=== PATIENT | female | born 1950 | race Caucasian/White ===

== ENCOUNTER 2023-05-02 09:29 | Outpatient (CLI) | payer MEDICARE, SELFPAY ==
--- NOTE | ~2023-05-02 | CT_ITS ---
Non-contrast CT scan of the Abdomen and Pelvis Clinical indication: Left flank pain Technique: 2.5 mm axial scans were obtained through the abdomen and pelvis without intravenous or or al contrast. Dose reduction technique was used on this scan by utilizing automated exposure control a nd iterative reconstruction technique. The dose-length product (DLP) was 315.57 mGy-cm. Findings: Images through the lung bases reveal a large hiatal hernia containing most of the stomach as well as most of the transverse colon in the pancreatic tail. There is no evidence of renal or ureteral calculi. The kidneys and the ureters are nondilated. Probab le parapelvic renal cysts. The liver, spleen, pancreas, and adrenals appear normal. Calcified gallstones are present. There is n o aortic aneurysm. There is no evidence of bowel obstruction. Images through the pelvis were performed. There is no evidence of ascites or lymphadenopathy. Urinary bladder unremarkable. No pelvic mass seen. No ascites. There is 53 degrees levoscoliosis of lumbar s pine with extensive degenerative change. Moderate to severe degenerative change of both hip joints no jocy Impression: Large hiatal hernia containing nearly entire stomach, most of the transverse colon, and the pancreati c tail. No bowel obstruction or bowel wall thickening evident. Cholelithiasis. Parapelvic renal cysts. No renal or ureteral stone. No hydronephrosis. Prominent levoscoliosis of lumbar spine with degenerative change, as detailed above. Reviewed, dictated and finalized at [facility] [place]. Impression: Large hiatal hernia containing nearly entire stomach, most of the transverse co az, and the pancreatic tail. No bowel obstruction or bowel wall thickening alicia dent. Cholelithiasis. Parapelvic renal cysts. No renal or ureteral stone. No hydronephrosis. Prominent levoscoliosis of lumbar spine with degenerative change, as detailed a aiden.
== END 2023-05-02 09:30 ==
PROVIDERS: PCP Internal Medicine; Visit Provider Internal Medicine
DX: R10.9 Unspecified abdominal pain (principal); K44.9 Diaphragmatic hernia without obstruction or gangrene; K80.20 Calculus of gallbladder without cholecystitis without obstruction; N28.1 Cyst of kidney, acquired
CPT/HCPCS: 74176

== ENCOUNTER 2023-08-09 01:24 | Day surgery (SDC) | payer MEDICARE, SELFPAY ==
[2023-07-28 10:14] VITALS: BMI 20.9
[2023-08-09 10:08] VITALS: BP 152/98; PULSE 104; RESP 18; TEMP 36.2; O2SAT 98; BMI 22.1
[2023-08-09] MEDS: LACTATED RINGERS 1,000 ML 150 ML IV CONT (10:20)
--- NOTE | 2023-08-09 10:27 | WPDANESEPPF ---
Anes - Initial Pre Proc Eval Procedure: Operation Date: 08/09/23 11:30 Proposed Procedures p Esophagogastroduodenoscopy - Gautam Gold MD Date/Time: 08/09/23 10:27 Surgeon: Gautam Gold MD Pre Op Diagnosis: GERD without esophagitis,Diaphragmatic hernia Patient Data Age: 72 Gender: F Height: 1.52 m Weight: 51.6 kg Last Vital Signs Temp 97.2 F L 08/09/23 10:08 Pulse 104 H 08/09/23 10:08 Resp 18 08/09/23 10:08 BP 152/98 H 08/09/23 10:08 Pulse Ox 98 08/09/23 10:08 O2 Del Method Room Air 08/09/23 10:08 Allergies Allergy/AdvReac Type Severity Reaction Status Date / Time Sulfa (Sulfonamide Allergy Mild Rash Verified 08/09/23 10:07 Antibiotics) iodine Allergy Rash Verified 08/09/23 10:07 Home Medications Medication Instructions Recorded Confirmed Type alendronate 70 mg tablet 70 mg PO WEEKLY 07/21/23 08/09/23 History amlodipine 5 mg tablet 5 mg PO DAILY 07/21/23 08/09/23 History ascorbic acid (vitamin C) 250 mg 250 mg PO DAILY 07/21/23 08/09/23 History tablet aspirin 81 mg tablet,delayed 81 mg PO DAILY 07/21/23 08/09/23 History release (Adult Low Dose Aspirin) atorvastatin 10 mg tablet 10 mg PO DAILY 07/21/23 08/09/23 History calcium carbonate 200 mg calcium 200 mg PO PRN PRN Indigestion 07/21/23 08/09/23 History (500 mg) chewable tablet (Tums) carvedilol 25 mg tablet 25 mg PO Q12H 07/21/23 08/09/23 History magnesium oxide 400 mg PO DAILY 07/21/23 08/09/23 History mecobalamin (vitamin B12) 10,000 10,000 mcg IM MONTHLY 07/21/23 08/09/23 History mcg solution for injection melatonin 1 mg tablet 1 mg PO QHS 07/21/23 08/09/23 History omeprazole 20 mg capsule,delayed 20 mg PO DAILY 07/21/23 08/09/23 History release tramadol 50 mg tablet 50 mg PO TID PRN Pain 07/21/23 08/09/23 History valsartan 160 mg tablet 160 mg PO BID 07/21/23 08/09/23 History Patient hx anesthesia problems: none Family hx anesthesia problems: none Results Review: All pre-operative results and documents have been reviewed as part of the pre-operative evaluation. FORMERLY [facility] Past Medical History Medical History (Updated 07/21/23 @ 11:35 by Genoveva Duvall, EMERGENCY CARE TECH-C) Anemia Cardiomyopathy Cholelithiasis GERD (gastroesophageal reflux disease) Hiatal hernia HTN (hypertension) Hypercholesterolemia Sleep apnea Vitamin B 12 deficiency Social History Social History Smoking status: Never smoker Alcohol intake: former Substance use type: does not use Living arrangements: other Additional living arrangements comments: with benita Vasquez Final PreProcedure Day of Procedure 08/09/23 10:27 Patient weight: thin Heart: regular rate and rhythm Lungs: clear to auscultation Airway: Mallampati scale class III Neurological: alert and oriented Last oral intake: >/= 8 hours ASA classification: III Emergent: no Anesthetic plan: proceed Anesthesia type and monitoring: general GIVS and standard monitoring Results Review: All pre-operative results and documents have been reviewed as part of the pre-operative evaluation. Informed Consent: The patient's anesthetic plan and its attendant risks and benefits were discussed with the patient/family/POA. Questions were solicited and answers provided to the satisfaction of the patient/family/POA.
--- NOTE | 2023-08-09 10:47 | WPDHPUPDATE1 ---
History and Physical Update Update Date/Time: 08/09/23 10:47 History and Physical has been reviewed, including an updated exam of the patient. There are NO changes in the patient's condition. Risks, benefits, and alternatives have been discussed and questions answered. Patient agrees to proceed with procedure.
[2023-08-09 10:59] VITALS: BP 131/70; PULSE 65; RESP 26; O2SAT 97
[2023-08-09 11:09] VITALS: BP 141/76; PULSE 59; RESP 24; O2SAT 96
[2023-08-09 11:19] VITALS: BP 179/82; PULSE 59; RESP 18; O2SAT 98
--- NOTE | 2023-08-09 11:25 | SUR.PHASEII ---
Dr. Peralta aware of pt elevated bp. Informed pt to take bp med when she gets home.
== END 2023-08-09 11:43 | disposition home or self-care (01) ==
PROVIDERS: PCP Internal Medicine; Visit Provider Internal Medicine Gastroenterology
PROC: 0DJ08ZZ Inspection of Upper Intestinal Tract, Via Natural or Artificial Opening Endoscopic (ICD-10-PCS; CPT 43235; principal; 2023-08-09 11:30)
DX: K21.00 Gastro-esophageal reflux disease with esophagitis, without bleeding (principal); K44.9 Diaphragmatic hernia without obstruction or gangrene; K80.20 Calculus of gallbladder without cholecystitis without obstruction; R93.3 Abnormal findings on diagnostic imaging of other parts of digestive tract; D64.9 Anemia, unspecified; I10 Essential (primary) hypertension; E78.00 Pure hypercholesterolemia, unspecified; E53.8 Deficiency of other specified B group vitamins; G47.30 Sleep apnea, unspecified; Z79.82 Long term (current) use of aspirin; Z79.891 Long term (current) use of opiate analgesic
CPT/HCPCS: 43239; 88305; J2704; J7120

== ENCOUNTER 2023-08-10 08:47 | Outpatient (CLI) | payer MEDICARE, SELFPAY ==
--- NOTE | ~2023-08-10 | XR_ITS ---
EXAMINATION: XR UGIAC w barium swallow DATE: 08/10/2023 09:39 INDICATION: Diaphragmatic hernia without obstruction. TECHNIQUE: The patient drank thick barium, gas-producing crystals, and thin barium. Fluoroscopy of th e esophagus, stomach, and proximal small bowel was performed. Fluoroscopy exposure time was 0.9 minut es. The total number of images was 250. COMPARISON: CT abdomen and pelvis 05/02/2023 FINDINGS: There is no mass or stricture of the esophagus. Esophageal motility is normal. There is a l arge sliding hiatal hernia. The gastroesophageal junction is 13 cm above the diaphragm. The duodenum is normal. Cholelithiasis is noted. IMPRESSION: 1. Large sliding hiatal hernia. Reviewed, dictated and finalized at location [facility].
== END 2023-08-10 08:48 | disposition home or self-care (01) ==
PROVIDERS: PCP Internal Medicine; Visit Provider Nurse Practitioner Family
DX: K44.9 Diaphragmatic hernia without obstruction or gangrene (principal)
CPT/HCPCS: 74246

== ENCOUNTER 2024-11-20 00:43 | Day surgery (SDC) | payer MEDICARE, SELFPAY ==
[2024-11-02 15:03] VITALS: BMI 21.9
--- NOTE | 2024-11-19 15:15 | P.PNAN_ITS ---
Anes - Initial Pre Proc Eval Procedure: Operation Date: 11/20/24 11:30 Proposed Procedures p Esophagogastroduodenoscopy - Gautam Gold MD Date/Time: 11/19/24 15:15 Surgeon: Gautam Gold MD Pre Op Diagnosis: GERD with esophagitis Patient Data Age: 74 Gender: F Height: 1.52 m Weight: 51 kg Allergies Allergy/AdvReac Type Severity Reaction Status Date / Time Sulfa (Sulfonamide Allergy Mild Rash Verified 11/20/24 10:09 Antibiotics) iodine Allergy Rash Verified 11/20/24 10:09 Home Medications ?Medication ?Instructions ?Recorded ?Confirmed ?Type alendronate 70 mg tablet 70 mg PO WEEKLY 07/21/23 11/20/24 History amlodipine 5 mg tablet 5 mg PO DAILY 07/21/23 11/20/24 History ascorbic acid (vitamin C) 250 mg 250 mg PO DAILY 07/21/23 08/09/23 History tablet aspirin 81 mg tablet,delayed 81 mg PO DAILY 07/21/23 11/20/24 History release (Adult Low Dose Aspirin) atorvastatin 10 mg tablet 10 mg PO DAILY 07/21/23 11/20/24 History calcium carbonate (Tums) 200 mg PO PRN PRN Indigestion 07/21/23 11/02/24 History carvedilol 25 mg tablet 25 mg PO Q12H Taking a different 07/21/23 08/09/23 History dose magnesium oxide 400 mg PO DAILY 07/21/23 11/20/24 History mecobalamin (vitamin B12) 10,000 10,000 mcg IM MONTHLY 07/21/23 11/02/24 History mcg solution for injection melatonin 1 mg tablet 1 mg PO QHS 07/21/23 11/20/24 History omeprazole 20 mg capsule,delayed 20 mg PO DAILY 07/21/23 11/20/24 History release tramadol 50 mg tablet 50 mg PO TID PRN Pain 07/21/23 11/02/24 History valsartan 160 mg tablet 160 mg PO BID 07/21/23 11/20/24 History acetaminophen 500 mg tablet 1,000 mg PO TID 11/02/24 11/20/24 History (Tylenol Extra Strength) ascorbic acid (vitamin C) 500 mg 500 mg PO TID 11/02/24 11/20/24 History tablet,extended release (Endur-C with jannie hips) carvedilol 6.25 mg tablet 6.25 mg PO Q12H 11/02/24 11/20/24 History docusate sodium 100 mg capsule 100 mg PO .COMPLEX 11/02/24 11/20/24 History polyethylene glycol 3350 17 gram 17 g PO .COMPLEX 11/02/24 11/02/24 History oral powder packet (Miralax) Patient hx anesthesia problems: none Family hx anesthesia problems: none Results Review: All pre-operative results and documents have been reviewed as part of the pre- operative evaluation. REPLACED BY [facility] Past Medical History Medical History (Updated 11/20/24 @ 10:34 by Rodney Isabel DO) CHF (congestive heart failure) history is unclear, she said she's had swelling in legs before and at one point her heart was working 25% of what it should be . however she said recent cardiology appts have shown her heart is working good and she's asymptomatic. No cardiology records in our EMR Cholelithiasis GERD (gastroesophageal reflux disease) Hiatal hernia Cardiomyopathy Vitamin B 12 deficiency Sleep apnea Hypercholesterolemia Anemia HTN (hypertension) Social History Social History Smoking status: Never smoker Alcohol intake: never Substance use: current Substance use type: opiates Living arrangements: with family Additional living arrangements comments: with sp Spiritual care concerns: No Anes - Eval Final PreProcedure Day of Procedure 11/19/24 15:15 Patient weight: normal Heart: regular rate and rhythm Lungs: clear to auscultation and normal air movement Airway: Mallampati scale class II Neurological: alert and oriented Last oral intake: >/= 8 hours ASA classification: IV Emergent: no Anesthetic plan: proceed Anesthesia type and monitoring: general GIVS and standard monitoring Results Review: All pre-operative results and documents have been reviewed as part of the pre- operative evaluation. Informed Consent: The patient's anesthetic plan and its attendant risks and benefits were discussed with the patient/family/POA. Questions were solicited and answers provided to the satisfaction of the patient/family/POA.
[2024-11-20] MEDS: LACTATED RINGERS 1,000 ML 150 ML IV CONT (10:21)
[2024-11-20 10:22] VITALS: BP 173/91; PULSE 85; RESP 20; TEMP 36.5; O2SAT 97
--- NOTE | 2024-11-20 10:49 | P.HP_ITS ---
History of Present Illness History of Present Illness Consent: Risks, benefits, and alternatives have been discussed and questions answered. Patient agrees to proceed with procedure. Chief complaint: GERD with esophagitis Narrative: Radha Dennis is a 74 year old female with gerd and large hiatal hernia- she was told that not a candidate for surgery at [facility] Review of Systems Review of Systems: All systems reviewed & are unremarkable except as noted in HPI and below [facility] Past Medical History Medical History (Updated 11/20/24 @ 10:34 by Rodney Isabel DO) CHF (congestive heart failure) history is unclear, she said she's had swelling in legs before and at one point her heart was working 25% of what it should be . however she said recent cardiology appts have shown her heart is working good and she's asymptomatic. No cardiology records in our EMR Cholelithiasis GERD (gastroesophageal reflux disease) Hiatal hernia Cardiomyopathy Vitamin B 12 deficiency Sleep apnea Hypercholesterolemia Anemia HTN (hypertension) Social History Social History Smoking status: Never smoker Alcohol intake: never Substance use: current Substance use type: opiates Living arrangements: with family Additional living arrangements comments: with sp Spiritual care concerns: No Meds Home Medications and Allergies Home Medications ?Medication ?Instructions ?Recorded ?Confirmed ?Type alendronate 70 mg tablet 70 mg PO WEEKLY 07/21/23 11/20/24 History amlodipine 5 mg tablet 5 mg PO DAILY 07/21/23 11/20/24 History ascorbic acid (vitamin C) 250 mg 250 mg PO DAILY 07/21/23 08/09/23 History tablet aspirin 81 mg tablet,delayed 81 mg PO DAILY 07/21/23 11/20/24 History release (Adult Low Dose Aspirin) atorvastatin 10 mg tablet 10 mg PO DAILY 07/21/23 11/20/24 History calcium carbonate (Tums) 200 mg PO PRN PRN Indigestion 07/21/23 11/02/24 History carvedilol 25 mg tablet 25 mg PO Q12H Taking a different 07/21/23 08/09/23 History dose magnesium oxide 400 mg PO DAILY 07/21/23 11/20/24 History mecobalamin (vitamin B12) 10,000 10,000 mcg IM MONTHLY 07/21/23 11/02/24 History mcg solution for injection melatonin 1 mg tablet 1 mg PO QHS 07/21/23 11/20/24 History omeprazole 20 mg capsule,delayed 20 mg PO DAILY 07/21/23 11/20/24 History release tramadol 50 mg tablet 50 mg PO TID PRN Pain 07/21/23 11/02/24 History valsartan 160 mg tablet 160 mg PO BID 07/21/23 11/20/24 History acetaminophen 500 mg tablet 1,000 mg PO TID 11/02/24 11/20/24 History (Tylenol Extra Strength) ascorbic acid (vitamin C) 500 mg 500 mg PO TID 11/02/24 11/20/24 History tablet,extended release (Endur-C with jannie hips) carvedilol 6.25 mg tablet 6.25 mg PO Q12H 11/02/24 11/20/24 History docusate sodium 100 mg capsule 100 mg PO .COMPLEX 11/02/24 11/20/24 History polyethylene glycol 3350 17 gram 17 g PO .COMPLEX 11/02/24 11/02/24 History oral powder packet (Miralax) Allergies Allergy/AdvReac Type Severity Reaction Status Date / Time Sulfa (Sulfonamide Allergy Mild Rash Verified 11/20/24 10:09 Antibiotics) iodine Allergy Rash Verified 11/20/24 10:09 Vital Signs Vital Signs - 24 hr 11/20/24 10:22 Temperature 97.7 F Pulse Rate 85 Respiratory Rate 20 Blood Pressure 173/91 H Pulse Oximetry 97 Oxygen Delivery Room Air Exam Const: General: comfortable and no acute distress HENMT: Face/Nose/Sinus: Normal nares present Eyes: General: appearance normal, both eyes and all related structures Neck: Neck: no JVD Resp: Auscultation: clear to auscultation bilaterally Cardio: Rate: regular rate Rhythm: regular rhythm GI: Inspection: non-distended GI Palp: Yes Soft to palpation Skin: General skin exam: normal color Neuro: Speech: normal speech Extrem: General: normal to inspection Psych: Mental Status: mental status grossly normal Assessment and Plan Assessment and plan (1) GERD (gastroesophageal reflux disease): Code(s): K21.9 - Gastro-esophageal reflux disease without esophagitis Status: Acute Assessment and Plan: egd to assess healing on ppi (2) Hiatal hernia: Code(s): K44.9 - Diaphragmatic hernia without obstruction or gangrene Status: Acute
[2024-11-20 11:07] VITALS: BP 154/64; PULSE 85; RESP 23; O2SAT 97
[2024-11-20 11:17] VITALS: BP 164/78; PULSE 68; RESP 22; O2SAT 99
[2024-11-20 11:27] VITALS: BP 174/77; PULSE 72; RESP 21; O2SAT 96
--- NOTE | 2024-11-20 11:27 | SUR.PHASEII ---
Called and spoke with Dr. Isabel regarding patient in post-op. Informed him, patient woke up from anesthesia and spit a tooth out. Patient is not concerned regarding tooth. She states she does not wish to speak with provider at bedside.
--- OUTSIDE RECORDS SUMMARY | 2024-11-22 15:13 | XMS_ITS | Clinical Summary ---
Author Organization [facility] [address] [place] [id number] Care Team Providers Care Kidney Trimmer Name Role Phone No, Physician Primary Care Provider [phone] Allergies No known active allergies Medications omeprazole (PriLOSEC) 20 mg capsule 05/04/2018 Active traMADol (ULTRAM) 50 mg tablet 0 05/04/2018 Active alendronate (FOSAMAX) 70 mg tablet 03/15/2018 Active Active Problems Problem Noted Date Diagnosed Date Complete tear of right rotator cuff 05/23/2018 Biceps tendinitis of right upper extremity 05/23 Surgical History Surgery Date Site/Laterality Comments HYSTERECTOMY BACK SURGERY Medical History Medical History Date Comments Osteoporosis Scoliosis Family History Medical History Relation Name Comments Arthritis Father Cancer Father Relation Name Status Comments Father Social History Tobacco Use Types Packs/Day Years Used Date Smoking Tobacco: Never Smokeless Tobacco: Never Personal Safety Answer Date Recorded Getting School Help Needed Not on file 01/12 Comments Unknown Sex and Gender Information Value Date Recorded Sex Assigned at Not on file Legal Sex 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 [place] [address] Care Teams Kidney Trimmer Relationship Specialty Start Date End Date No, Physician PCP - General 05/18/18
--- OUTSIDE RECORDS SUMMARY | 2024-11-22 15:13 | XMS_ITS | Clinical Summary ---
Author Organization [facility] Address [address] [place] [address] Care Team Providers Care Lead Furnace Operator Name Role Phone Jorge Warner MD Primary Care Provider Source Comments [facility],non-owned Affiliates and Associated Physician Practices is amultiple site organization consisting of ambulatory clinics and hospital sitesin [place], [place], [place] and [place]. This disclosure is being madepursuant to the Care Everywhere program and may not contain all information available regarding this patient. Last updated 18.[facility] Allergies Active Allergy Reactions Criticality Noted Date Comments Iodine Itching High 07/31/2019 Medications * Be aware that medications may not be up to date on this document. Alwaysverify current medications with the patient. Medication Sig Dispensed Refills Start Date End Date Status omeprazole (PriLOSEC) 20 MG capsule 07/20/2023 Active traMADol (Ultram) 50 MG tablet 08/21/2023 Active carvedilol (Coreg) 6.25 MG tablet Take 1 (one) tablet by mouth 2 times daily 07/02/2023 Active valsartan (Diovan) 160 MG tablet Take 1 (one) tablet by mouth 2 times daily 06/23/2023 Active atorvastatin (Lipitor) 10 MG tablet Take 1 (one) tablet by mouth once daily 07/04/2023 Active Magnesium Oxide -Mg Supplement 400 (240 Mg) MG Take 1 (one) tablet by mouth once daily 07/04/2023 Active amLODIPine (Norvasc) 5 MG tablet Take 1 (one) tablet by mouth once daily 07/10/2023 Active alendronate (Fosamax) 70 MG tablet 06/22/2023 Active Aspirin Low Dose 81 MG tablet Take 1 (one) tablet by mouth once daily 07/27/2023 Active calcium carbonate (Tums) 500 MG chew tablet Take 1 (one) tablet by mouth daily with food Active docusate sodium (Colace) 50 MG capsule Take 1 (one) capsule by mouth once daily Active ascorbic acid (Vitamin C) 500 MG tablet Take 1 (one) tablet by mouth once daily Active bismuth subsalicylate (Pepto-Bismol) 262 MG chew tablet Take 1 (one) tablet by mouth as needed for Nausea/Vomiting Active melatonin 3 MG tablet Take 1 (one) tablet by mouth at bedtime Active acetaminophen (Tylenol) 325 MG tablet Take 1 (one) tablet by mouth every 4 hours as needed for Fever or Pain Maximum allowable Acetaminophen amount = 4 Grams (4000 mg) / 24 hours. Active Social History Tobacco Use Types Packs/Day Years Used Date Smoking Tobacco: Never Smokeless Tobacco: Never Tobacco Cessation:Counseling Given: No Sex and Gender Information Value Date Recorded Sex Assigned at Not on file Gender Identity Not on file Sexual Orientation Not on file Last Filed Vital Signs Vital Sign Reading Time Taken Comments Blood Pressure 159/90 09/19/2023 10:57 AM BRUSH CLEARING LABORER Pulse 95 09/19/2023 10:57 AM BRUSH CLEARING LABORER Temperature 37.1 ??C (98.7 ??F) 09/19/2023 10:[address] Respiratory Rate 18 09/19/2023 10:57 AM BRUSH CLEARING LABORER Oxygen Saturation 95% 09/19/2023 10:57 AM BRUSH CLEARING LABORER Inhaled Oxygen Concentration - - Weight 48.1 kg (106 lb) 09/19/2023 10:57 AM BRUSH CLEARING LABORER Height 152.4 cm (5') 09/19/2023 10:57 AM BRUSH CLEARING LABORER Body Mass Index 20.7 09/19/2023 10:57 AM BRUSH CLEARING LABORER Plan of Treatment Health Maintenance Due Date Last Done Comments BONE DENSITY TESTING 1950 COLOGUARD (AGES 45-75) - COL ON CA SCREENING 1950 COLON MONITORING 1951 COLONOSCOPY - COLON CA SCREENING 1951 CT COLONOGRAPHY - COLON CA SCREENING 1950 Colorectal Cancer Screening 1950 FIT - COLON CA SCREENING 1950 FLEX SIG - COLON CA SCREENING 1950 MAMMOGRAM 1950 HEPATITIS C SCREENING 10/24/1969 DTAP/TDAP/TD VACCINES (1 - Tdap) 1970 PNEUMOCOCCAL VACCINE 50+ (1 of 1 - PCV) 2001 ZOSTER VACCINE (1 of 2) 2001 COVID-19 VACCINE (1 - 2023-2 5 season) 2024 INFLUENZA VACCINE (#1) 2024 DEPRESSION SCREENING 10/31/2024 MEDICARE AWV ? CALENDAR YEAR 2024 Respiratory Syncytial Virus (RSV) Vaccine Pt: or over 60 yrs (1 - 1-dose 75+ series) 2026 HEPATITIS B VACCINE Aged Out No longe r eligible based on patient's age to complete this topic HIB VACCINE Aged Out No longer eligi ble based on patient's age to complete this topic HPV VACCINE Aged Out No longer eligi ble based on patient's age to complete this topic MENINGOCOCCAL (Group B) VACCINE Aged Out No longer eligible based on patient's age to complete this topic MENINGOCOCCAL VACCINE Aged Out No az joslyn eligible based on patient's age to complete this topic Care Teams Lead Furnace Operator Relationship Specialty Start Date End Date Jorge Warner MD [address] [place] [id number] PCP - General 12/03/09
--- OUTSIDE RECORDS SUMMARY | 2024-11-22 15:13 | XMS_ITS | CONTINUITY OF CARE DOCUMENT ---
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 Bayron Martinez MD Valvular heart disease completed - Bayron Martinez MD Pulmonary hypertension completed - Bayron Martinez MD Cardiomyopathy completed - Bayron Martinez MD lowestef 25 Scoliosis active Bayron Martinez MD Diastolic CHF active Bayron Martinez MD lowes t 25,cannot afford entresot or jariancie Screening active Bayron Martinez MD CAD;NEG CAROTID active Bayron Martinez MD B12 deficiency active Bayron Martinez MD NORM AL IRON Hyperlipidemia active Bayron Martinez MD Renal disease, chronic, mild;NEG DUPLEX AND US completed - Bayron Martinez MD Mitral insufficiency, mild completed 02/13 - Bayron Martinez MD Exposure to SARS-associated coronavirus;had vaccine active Bayron Martinez MD Hypertension;neg duplex active Bayron cuello MD Microalbuminuria active Bayron Martinez MD ne g egfr, canont aford jarince or ludwin it FAMILY HISTORY OF HEART DISEASE active Bayron Martinez MD brotehr mi Renal cyst active Bayron Martinez MD Hiatal hernia active Bayron Martinez MD Bradycardia;nml tsh active Bayron Martinez MD due to bb APC's;nml tsh active Bayron Martinez MD ENCOUNTERS Date Type Provider Location Encounter Diag nosis 5 - 5 In-person encounter Office Visit Bayron Martinez MD [facility] MicroalbuminuriaBradycardia;nml tshAPC's;nml tsh 4 - 4 In-person encounter Office Visit Bayron Martinez MD [facility] CardiomyopathyDiastolic CHFRenal disease, chronic, mild;NEG DUPLEX AND USMitral insufficiency, mildHypertension;neg duplexMicroalbuminuriaRenal cystHiatal hernia 5 - 5 In-person encounter Office Visit Bayron Martinez MD [facility] Office Diastolic CHFFAMILY HISTORY OF HEART DISEASE 8 - 8 In-person encounter Office Visit Bayron Martinez MD [facility] Hypertension;neg duplex 3 - 3 In-person encounter Office Visit Bayron Martinez MD [facility] Exposure to SARS-associated coronavirus;had vaccine 4 - 4 In-person encounter Office Visit Byaron Martinez MD [facility] CAD;NEG USUCOLVN38 deficiency 8 - 8 In-person encounter Office Visit Bayron Martinez MD [facility] Valvular heart diseasePulmonary hypertensionCardiomyopathyDiastolic CHF 1 - 1 In-person encounter Office Visit Bayron Martinez MD [facility] RBBB with left anterior fascicular blockScoliosisDiastolic CHFScreeningCAD;NEG [id number] deficiencyHyperlipidemia VITAL SIGNS Date Observation Value Provider Body Mass Index (Ratio) 21.87 kg/m2 Álvaro Martinez MD oxygen saturation, oximetry 97 % Brea [facility] pulse rate 71 /min Brea Jonathan [facility] blood pressure, diastolic 77 mm[Hg] Ke rri [facility] blood pressure, systolic 130 mm[Hg] [facility] E&M 112 [lb_av] [facility] height E&M 60 [in_i] Brea [facility] Body Mass Index (Ratio) 21.09 kg/m2 Álvaro vu Serotkhushboo PENN blood pressure, diastolic 71 mm[Hg] Li nkLogic blood pressure, systolic 127 mm[Hg] Nayeli kLogic blood pressure, cuff size regular Percy rret blood pressure, diastolic 71 mm[Hg] Jose henning Serotkhushboo PENN blood pressure, systolic 127 mm[Hg] Jordy Martinez MD pulse rate 63 /min [facility] y respiratory rate E&M 12 /min [facility] oxygen saturation, oximetry 96 % [facility] weight E&M 108 [lb_av] [facility] y height E&M 60 [in_i] [facility] y Body Mass Index (Ratio) 22.46 kg/m2 Álvaro vu Serotkhushboo PENN weight E&M 115 [lb_av] Bayron Serota Johny D pulse rate 62 /min Bayron Serota Johny Mora blood pressure, diastolic 84 mm[Hg] Jose gonzalezey Serota blood pressure, systolic 148 mm[Hg] Jordy chaves Serotkhushboo PENN Body Mass Index (Ratio) 24.21 kg/m2 Álvaro vu Serotkhushboo PENN blood pressure, diastolic 85 mm[Hg] Sola nkLogic blood pressure, systolic 178 mm[Hg] Nayeli kLogic blood pressure, diastolic 85 mm[Hg] Sa ra Torres blood pressure, systolic 178 mm[Hg] Alex a Torres oxygen saturation, oximetry 95 % Kavitha Torres respiratory rate E&M 17 /min Kavitha Si ms pulse rate 65 /min Kavitha Torres weight E&M 124 [lb_av] Kavitha Torres blood pressure, cuff size regular Sa ra Torres height E&M 60 [in_i] Kavitha Torres Body Mass Index (Ratio) 23.24 kg/m2 Álvaro Martinez MD blood pressure, resting No Felix erinn Nicolas blood pressure, diastolic 81 mm[Hg] [facility] blood pressure, systolic 144 mm[Hg] [facility] oxygen saturation, oximetry 98 % Domenico Nicolas pulse rate 70 /min Domenico Maddox artemas respiratory rate E&M 18 /min Bret mendez [place] weight E&M 119 [lb_av] Domenico Maddox downing height E&M 60 [in_i] Domenico Maddox artemas Body Mass Index (Ratio) 23.24 kg/m2 Álvaro Martinez MD blood pressure, cuff size regular Ke rri Marlin blood pressure, diastolic 100 mm[Hg] Ke rri Nicouenenfphillip blood pressure, systolic 170 mm[Hg] Romulo Isaac oxygen saturation, oximetry 98 % Brea Marlin respiratory rate E&M 16 /min Brea fernández pulse rate 77 /min Brea Castillo [facility] weight E&M 119 [lb_av] Brea Castillo [facility] height E&M 60 [in_i] Brea Castillo [facility] Body Mass Index (Ratio) 19.92 kg/m2 Álvaro Martinez MD respiratory rate E&M 16 /min [facility] blood pressure, diastolic 74 mm[Hg] To [facility] blood pressure, systolic 116 mm[Hg] Ton [facility] oxygen saturation, oximetry 98 % [facility] pulse rate 63 /min [facility] weight E&M 102 [lb_av] [facility] height E&M 60 [in_i] [facility] Body Mass Index (Ratio) 24.68 kg/m2 Álvaro Martinez MD blood pressure, diastolic 90 mm[Hg] Sussy Nuñezayala Mcguire blood pressure, systolic 141 mm[Hg] Daphne Alarconlakshmi Mcguire oxygen saturation, oximetry 96 % Manuel Mcguire respiratory rate E&M 20 /min Adelita Mcguire pulse rate 101 /min Manuel crowell weight E&M 126.4 [lb_av] Manuel dhaliwal height E&M 60 [in_i] Manuel crowell ALLERGIES Allergy Name Onset Date Reaction Criticality Status JARDIANCE yeast Low Criticality active IODINE High Criticality active RESULTS Date Observation Value Provider Reference Range Interpretation Location hemoglobin A1C, blood, as % of total hemoglobin 5.2 % OF TOTAL HGB [facility] <5.7 Normal NT-pro BNP 820 [facility] High calcium, serum 9.2 mg/dL [facility] 8.6-10.4 Normal carbon dioxide, venous blood 31 mmol/L [facility] 20-32 Normal chloride, serum 102 mmol/L [facility] 98-110 Normal potassium, serum 3.6 mmol/L [facility] 3.5-5.3 Normal sodium, serum 141 mmol/L [facility] 135-146 Normal urea nitrogen/creatin ine ratio, serum NOT APPLICABLE (calc) [facility] 6-22 Estimated Glomerular Filtration Rate (calc) 87 mL/min/{1.73_m 2} [facility] > OR = 60 Normal creatinine, serum 0.80 mg/dL [facility] 0.60-0.93 Normal urea nitrogen, blood 16 mg/dL [facility] 7-25 Normal blood glucose, random 85 mg/dL [facility] 65-99 Normal microalbumin/cre atinine ratio, urine 78 MCG/MG CREAT [facility] <30 High microalbumin/tot al urine volume 49 mg/L [facility] Units converted. See lab report for original value. Normal creatinine, random, urine 63 mg/dL [facility] 20-275 Normal pro brain natriuretic peptide 140 pg/mL [facility] 0-301 ferritin, serum 205 ng/mL [facility] 15-150 High iron saturation percent, serum 26 % [facility] 15-55 iron, serum 90 ug/dL [facility] 27-139 iron binding capacity, unsaturated 254 ug/dL [facility] 222-155 2628/01/ 09 iron binding capacity, total 344 ug/dL [facility] 834-440 9253/01/ 09 lipoprotein, beta, serum, point, quantitative, calculated 61 mg/dL [facility] 0-99 very low density lipoproteins 22 mg/dL [facility] 5-40 HDL cholesterol, serum 47 mg/dL [facility] >39 triglyceride, serum, random 111 mg/dL [facility] 0-149 cholesterol, serum 130 mg/dL [facility] 132-684 5893/01/ 09 calcium, serum 9.8 mg/dL [facility] 8.7-10.3 carbon dioxide, venous blood 28 mmol/L [facility] 20-29 chloride, serum 98 mmol/L [facility] 96-106 potassium, serum 4.3 mmol/L [facility] 3.5-5.2 sodium, serum 140 mmol/L [facility] 260-262 0408/01/ 09 urea nitrogen/creatin ine ratio, serum 30 [facility] 12-28 High eGFR if 53 mL/min/{1.73_m 2} [facility] >59 Low eGFR if not 46 mL/min/{1.73_m 2} [facility] >59 Low creatinine, serum 1.22 mg/dL [facility] 0.57-1.00 High urea nitrogen, blood 36 mg/dL [facility] 8-27 High blood glucose, random 108 mg/dL [facility] 65-99 High HISTORY OF MEDICATION USE Medication Status Instructions Dates Provider Indications Com ments Diflucan 200 mg tablet completed 1 tablet by mouth single dose - Bayron Martinez MD Jardiance 10 mg tablet completed TAKE 1 TABLET BY MOUTH EVERY DAY - Bayron Martinez MD [place] 200 mg tablet completed Take 1 tablet by mouth once a day - Bayron Martinez MD amlodipine 5 mg tablet active Bayron Martinez MD Jardiance 10 mg tablet completed TAKE 1 TABLET BY MOUTH EVERY DAY - Bayron Martinez MD atorvastatin 10 mg tablet active TAKE 1 TABLET BY MOUTH EVERY DAY [facility] valsartan 160 mg tablet active TAKE 1 TABLET BY MOUTH TWICE A DAY Homa Sung carvedilol 6.25 mg tablet active TAKE 1 TABLET BY MOUTH TWICE A DAY Josie Sanchez aspirin 81 mg tablet,delayed release (DR/EC) active TAKE 1 TABLET BY MOUTH EVERY DAY [facility] valsartan 80 mg tablet completed TAKE 1 TABLET BY MOUTH TWICE A DAY - Jennifer Heath PATIENT PLACEMENT COORDINATOR valsartan 80 mg tablet completed Take 1 tablet by mouth twice a day - Bayron Martinez MD #180, 90 days supply, Filled 11/17/2020 [facility] MELATONIN 10 MG TBDP completed - Bayron Martinez MD tramadol 50 mg tablet active Bayron Martinez MD #120, 30 days supply, Filled 10/10/2020 valsartan 80 mg tablet completed twice a day - Bayron Martinez MD #180, 90 days supply, Filled 11/17/2020 cyanocobalamin (vitamin B-12) 1,000 mcg/mL solution active every 4 weeks Jennifer Heath PATIENT PLACEMENT COORDINATOR VITAMIN C CAPSULE completed once a day - Bayron Martinez MD ASPIRIN LOW DOSE 81 MG TBEC completed TAKE 1 TABLET BY MOUTH EVERY DAY - Bayron Martinez MD carvedilol 6.25 mg tablet completed Take 1 tablet by mouth twice a day - Manuel Maynor atorvastatin 10 mg tablet completed Take 1 tablet by mouth once a day as directed TAKE 1 TABLET BY MOUTH DAILY - Brook Chau DIOVAN 80 MG ORAL TABLET completed twice a day when she cannont get enresto - Bayron Martinez MD FUROSEMIDE 40 MG ORAL TABLET completed one a day - Bayron Martinez MD #90, 90 days supply, Filled 10/28/2019 CYANOCOBALAMIN 1,000 MCG/ML completed INJECT THE CONTENTS OF 1 VIAL INTO THE MUSCLE ONCE MONTHLY - Bayron Martinez MD LIPITOR 10 MG ORAL TABLET completed ONE TAB. DAILY - Bayron Martinez MD Adult Aspirin Regimen 81 mg tablet,delayed release (DR/EC) completed once a day - Bayron Martinez MD ENTRESTO 49-51 MG ORAL TABLET completed - Brea Isaac ALDACTONE 25 MG ORAL TABLET completed ONE TAB DAILY - Bayron Martinez MD COREG 6.25 MG ORAL TABLET completed ONE TAB. TWICE DAILY - Brea Isaac omeprazole 20 mg capsule,delayed release(DR/EC) active 1 tablet once a day Manuel Mcguire FUROSEMIDE 20 MG ORAL TABLET completed 1 tab once daily - Bayron Martinez MD magnesium oxide 400 mg (241.3 mg magnesium) tablet active 1 tablet once a day Manuel Mcguire alendronate 70 mg tablet active 1 tablet once a week Manuel Mcguire TRAMADOL HCL TABLET completed 50 mg tab every 6 hours as needed - Bayron Martinez MD SOCIAL HISTORY Date Observation Value Provider smoking status Never smoker Bayron Martinez MD social history E&M Smoking Histo ry: P nancy has never smoked. Bayron Martinez MD social history reviewed E&M revi ewed - no changes required Bayron Martinez MD smoking status Never smoker Jennifer negron NP social history E&M S moking History: Lance cruz has never smoked. Bayron Martinez MD social history reviewed E&M revi ewed - no changes required Bayron Martinez MD smoking status Never smoker Domenico hodges social history E&M S moking History: Lance cruz has never smoked. Bayron Martinez MD social history reviewed E&M revi ewed - no changes required Bayron Martinez MD smoking status Never smoker Brea calderon social history E&M S moking History: Lance cruz has never smoked. Bayron Martinez MD social history reviewed E&M revi ewed - no changes required Bayron Martinez MD smoking status Never smoker Kishor Brizuela social history E&M S moking History: Lance cruz has never smoked. Bayron Martinez MD social history reviewed E&M elizabeth tellesed - no changes required Bayron Martinez MD smoking status Never smoker Manuel Samaniego FUNCTIONAL STATUS Date Observation Value Provider HRA, CV Assess/Plan, Angina (inactive) Management Plan continue current therapy Bayron Martinez MD HRA, CV Assess/Plan, Angina (inactive) Management Plan continue current therapy Bayron Martinez MD HRA, CV Assess/Plan, Angina (inactive) Management Plan continue current therapy Bayron Martinez MD HRA, CV Assess/Plan, Angina (inactive) Management Plan continue current therapy Bayron Martinez MD HRA, CV Assess/Plan, Angina (inactive) Management Plan continue current therapy Bayron Martinez MD HRA, CV Assess/Plan, Angina (inactive) Management Plan continue current therapy Bayron Martinez MD HRA, CV Assess/Plan, Angina (inactive) Management Plan continue current therapy Bayron Martinez MD INSURANCE PROVIDERS Payer name Policy type / Coverage type [place] [employer] ID [employer] MEDICARE GOLD ADVANTAGE HMO Medicare [id number] ADVANCE DIRECTIVES Name Date DISCUSSED - NO DECISION MADE TREATMENT PLAN Date Name Performer [id number],B, Bayron cuello MD [id number],B, 8 20 ef up tot 50 Bayron Martinez MD [id number],S, Bayron cuello MD [id number],B, Bayron cuello MD [id number],N,colan and sto mach in chest Bayron Martinez MD [id number],S, n ml d and a1c and tsh n eg nrenal us Bayron Martinez MD [id number],S, t oo frail to cath b y wall motiorn Bayron Serota [place] [id number],S, Bayron Serot a [place] [id number],B, Bayron Serot a [place] [id number],S, Bayron Serot a [place] [id number],S, 7 8 Bayron Serota [place] [id number],B, 8 20 ef up tot 50 Bayron Serota [place] [id number],B, 8 20 ef up tot 50 Bayron Serota [place] [id number],S, Bayron Serot a [place] [id number],S, Bayron Serot a [place] [id number],C,820 ef up tot 50 Bayron Serota [place] [id number],S, p ro 820, ef 40 Bayron Serota [place] [id number],B, Bayron Serot a [place] [id number],B, Bayron Serot a [place] [id number],S, Bayron Serot a [place] [id number],S, Bayron Serot a [place] [id number],S, Bayron Serot a [place] [id number],S, n ml d and a1c and tsh Bayron Serota [place] [id number],S, p ro 820, ef 40 Bayron Serota [place] [id number],S, 7 8 Bayron Serota [place] [id number],C,nml d and a1c and tsh Bayron Serota [place] [id number],C,78 Bayron Ser jarrett [place] [id number],C,pro 820, ef 4 0 Bayron Martinez MD [id number],C,L DL 65. Her updated medication list for this problem includes: Atorvastatin 10 Mg Tablet (Atorvastatin) ..... Take 1 tablet by mouth once a day as directed take 1 tablet by mouth daily Jennifer Heath NP [id number],C,B P 178/85 recheck 177/95. Discussion of benefits for remote patient monitoring took place. Patient gives consent for remote monitoring of physiologic parameters including, but not limited to, weight, blood pressure, pulse oximetry, respiratory flow rate. i ncreasing valsartan to 160mg BID. Her updated medication list for this problem includes: Carvedilol 6.25 Mg Tablet (Carvedilol) ..... Take 1 tablet by mouth twice a day Aspirin 81 Mg Tablet,delayed Release (dr/ec) (Aspirin) ..... Take 1 tablet by mouth every day Valsartan 80 Mg Tablet (Valsartan) ..... Take 1 tablet by mouth twice a day Jennifer Heath NP [id number],C,mild MR on ec ho 02/2022 Jennifer Heath NP [id number],C,ef 40 Bayron Martinez MD [id number],C,nml tsh and v it d Bayron Martinez MD Cardiology: t oo frail to cath b y wall motiorayala in remote past Bayron Martinez MD Cardiology Bayron Martinez MD Cardiology Bayron Martinez MD Cardiology Bayron Martinez MD Cardiology Bayron Martinez MD Cardiology: 7 8 Bayron Martinez MD Cardiology Bayron Martinez MD Cardiology Bayron Martinez MD Cardiology Bayron Martinez MD Cardiology: n ml d and a1c n eg nrenal us Bayron Martinez MD Cardiology:55% 8 20 ef up tot 50 Bayron Serotkhushboo PENN Cardiology:4.5% Bayron Martinez MD Cardiology Bayron Serotkhushboo PENN Cardiology: 8 20 ef up tot 50 Bayron Serotkhushboo PENN Cardiology Bayron Serota Cardiology Bayron Serotkhushboo PENN Cardiology:colan and stomach in chest Bayron Martinez MD Cardiology: n ml d and a1c and tsh n eg nrenal us Bayron Martinez MD Cardiology: t oo frail to cath b y wall motiorn Bayron Martinez MD Cardiology Bayron Serotkhushboo PENN Cardiology Bayron Serotkhushboo PENN Cardiology Bayron Serotkhushboo PENN Cardiology: 7 8 Bayron Serotkhushboo PENN Cardiology: 8 20 ef up tot 50 Bayron Serotkhushboo PENN Cardiology: 8 20 ef up tot 50 Bayron Serotkhushboo PENN Cardiology Bayron Serotkhushboo PENN Cardiology Bayron Serotkhushboo PENN :820 ef up tot 50 Bayron Martinez MD TeleHealth: p ro 820, ef 40 Bayron Martinez MD TeleHealth Bayron Serotkhushboo PENN TeleHealth Bayron Serotkhushboo PENN TeleHealth Bayron Serotkhushboo PENN TeleHealth Bayron Serotkhushboo PENN TeleHealth Bayron Serotkhushboo PENN TeleHealth: n ml d and a1c and tsh Bayron Martinez MD TeleHealth: p ro 820, ef 40 Bayron Martinez MD TeleHealth: 7 8 Bayron Martinez MD :nml d and a1c and tsh Bayron Se justus PENN :78 Bayron Martinez MD :pro 820, ef 40 Bayron Martinez MD Cardiology;holter pe idnd:LDL 65. Her updated medication list for this problem includes: Atorvastatin 10 Mg Tablet (Atorvastatin) ..... Take 1 tablet by mouth once a day as directed take 1 tablet by mouth daily Jennifer Heath NP Cardiology;sudhirter pe idnd:BP 178/85 recheck 177/95. Discussion of benefits for remote patient monitoring took place. Patient gives consent for remote monitoring of physiologic parameters including, but not limited to, weight, blood pressure, pulse oximetry, respiratory flow rate. i ncreasing valsartan to 160mg BID. Her updated medication list for this problem includes: Carvedilol 6.25 Mg Tablet (Carvedilol) ..... Take 1 tablet by mouth twice a day Aspirin 81 Mg Tablet,delayed Release (dr/ec) (Aspirin) ..... Take 1 tablet by mouth every day Valsartan 80 Mg Tablet (Valsartan) ..... Take 1 tablet by mouth twice a day Jennifer Heath NP Cardiology;holter peidnd:mild MR on echo 02/2022 Jennifer Heath NP :ef 40 Bayron Martinez MD :nml tsh and vit d Bayron Martinez MD Cardiology: t oo frail to cath b y martine Martinez MD Cardiology Bayron Martinez MD Cardiology Bayron Martinez MD Cardiology: N ML D Bayron Martinez MD Cardiology: T he following medications were removed from the medication list: Lipitor 10 Mg Oral Tablet (Atorvastatin calcium) ..... One tab. daily Her updated medication list for this problem includes: Atorvastatin Calcium 10 Mg Tabs (Atorvastatin calcium) ..... Take 1 tablet by mouth every day. C HOL: 130 (11/08/2019) HDL: 47 (11/08/2019) Bayron Martinez MD Cardiology Bayron Martinez MD Cardiology Bayron Martinez MD Cardiology Bayron Martinez MD Cardiology: p ro and ef norml Bayron Martinez MD Cardiology Bayron Martinez MD :pro and ef norml Bayron Martinez MD Cardiology Follow up : N ML D Bayron Martinez MD Cardiology Follow up Bayron mast MD Cardiology Follow up Bayron mast MD Cardiology Follow up : H er updated medication list for this problem includes: Atorvastatin Calcium 10 Mg Tabs (Atorvastatin calcium) ..... Take 1 tablet by mouth every day. Lipitor 10 Mg Oral Tablet (Atorvastatin calcium) ..... One tab. daily C HOL: 130 (11/08/2019) HDL: 47 (11/08/2019) Bayron Martinez MD Cardiology Follow up Bayron mast MD Cardiology Follow up : p ro normaol after enteresrot Bayron Martinez MD Cardiology Follow up : t oo frail to cath b y martine Martinez MD Cardiology Follow up Bayron mast MD :pro normaol after enteresrot Garcia milady Martinez MD Cardiology;e:cured w ith esntsresot 1 800 Bayron Martinez MD Cardiology;e Bayron Martinez MD Cardiology;e: m od mr and mod to sever tr with pul htn 60 Bayron Martinez MD Cardiology;e: 6 3, due to chf Bayron Martinez MD Cardiology;e Bayron Martinez MD Cardiology;e:severe Bayron Serot khushboo PENN Cardiology;e: N ML D Bayron Martinez MD Cardiology;e:too fra il to cath b y martine Martinez MD Cardiology;e: H er updated medication list for this problem includes: Lipitor 10 Mg Oral Tablet (Atorvastatin calcium) ..... One tab. daily Bayron Martinez MD Cardiology;e Bayron Martinez MD Cardiology Bayron Martinez MD Cardiology Bayron Martinez MD Cardiology:by martine Read MD Cardiology:NML D Bayron Mora Cardiology:1800 Bayron Martinez MD Cardiology:63 Bayron Martinez MD Cardiology:mod mr and mod to sev er tr with pul htn 60 Bayron Martinez MD Date Name Complete Echo Monitor - Telemetry (Mobile Cardiac) EKG Complete Echo Holter Monitor 24 Hr Complete Echo Holter Monitor 24 Hr BASIC METABOLIC PANE L W/EGFR HEMOGLOBIN A1c Microalb/Creatinine Urine, Random PROBNP, N TERMINAL RPM (remote patient monitoring) Complete Echo Holter Monitor 24 Hr Renal Artery Duplex Kidney Ultrasound Complete Echo Holter Monitor 24 Hr Holter Monitor 24 Hr PROBNP, N TERMINAL BASIC METABOLIC PANE L W/EGFR LIPID PANEL IRON AND TOTAL IRON BINDING CAPACITY FERRITIN Carotid Duplex Bilat eral IRON AND TOTAL IRON BINDING CAPACITY FERRITIN Complete Echo Carotid Duplex Bilat eral LIPID PANEL HISTORY OF PROCEDURES Procedure Date Procedure Name Provider Procedure Notes S tatus EKG Bayron Martinez MD complete d Holter, 24 or 48 Bayron Martinez MD co mpleted EKG Bayron Martinez MD complete d EKG Bayron Martinez MD complete d
--- OUTSIDE RECORDS SUMMARY | 2024-11-22 15:13 | XMS_ITS | Referral Summary ---
Author Organization [facility] Address [address] [address] Care Team Providers Care Qualitative Field Coordinator Name Role Phone Jorge Warner MD Primary Care Provider [phone] Source Comments [facility] [employer],non-owned Affiliates and Associated Physician Practices is amultiple site organization consisting of ambulatory clinics and hospital sitesin [place], [place], [place] and [place]. This disclosure is being madepursuant to the Care Everywhere program and may not contain all information available regarding this patient. Last updated 18.[facility] [employer] Allergies Active Allergy Reactions Criticality Noted Date [...] Comments Blood Pressure 159/90 09/19/2023 10:57 AM INTEGRATED LOGISTICS SUPPORT MANAGER Pulse 95 09/19/2023 10:57 AM INTEGRATED LOGISTICS SUPPORT MANAGER Temperature 37.1 ??C (98.7 ??F) 09/19/2023 10:[address] Respiratory Rate 18 09/19/2023 10:57 AM INTEGRATED LOGISTICS SUPPORT MANAGER Oxygen Saturation 95% 09/19/2023 10:57 AM INTEGRATED LOGISTICS SUPPORT MANAGER Inhaled Oxygen Concentration - - Weight 48.1 kg (106 lb) 09/19/2023 10:57 AM INTEGRATED LOGISTICS SUPPORT MANAGER Height 152.4 cm (5') 09/19/2023 10:57 AM INTEGRATED LOGISTICS SUPPORT MANAGER Body Mass Index 20.7 09/19/2023 10:57 AM INTEGRATED LOGISTICS SUPPORT MANAGER Plan of Treatment Not on file Care Teams Qualitative Field Coordinator Relationship Specialty Start Date End Date Flury, Jorge E, MD [address] [address] PCP - General 12/03/09
--- OUTSIDE RECORDS SUMMARY | 2024-11-22 15:13 | XMS_ITS | Patient Health Summary ---
Author Organization [facility] Address [address] [place] [address] Care Team Providers Care Public Health Microbiologist Name Role Phone Jorge Warner MD Primary Care Provider [phone] Note from [facility],non-owned Affiliates and Associated Physician Practices is amultiple site organization consisting of ambulatory clinics and hospital sitesin [place], [place], [place] and [place]. This disclosure is being madepursuant to the Care Everywhere program and may not contain all information available regarding this patient. Last updated 18.[facility] Allergies * Iodine(Itching) -High Criticality Medications * Be aware that medications may not be up to date on this document. Alwaysverify current medications with the patient. * omeprazole (PriLOSEC) 20 MG capsule(Started 07/20/2023) * traMADol (Ultram) 50 MG tablet(Started 08/21/2023) * carvedilol (Coreg) 6.25 MG tablet(Started 07/02/2023) Take 1 (one) tablet by mouth 2 times daily * valsartan (Diovan) 160 MG tablet(Started 06/23/2023) Take 1 (one) tablet by mouth 2 times daily * atorvastatin (Lipitor) 10 MG tablet(Started 07/04/2023) Take 1 (one) tablet by mouth once daily * Magnesium Oxide -Mg Supplement 400 (240 Mg) MG(Started 07/04/2023) Take 1 (one) tablet by mouth once daily * amLODIPine (Norvasc) 5 MG tablet(Started 07/10/2023) Take 1 (one) tablet by mouth once daily * alendronate (Fosamax) 70 MG tablet(Started 06/22/2023) * Aspirin Low Dose 81 MG tablet(Started 07/27/2023) Take 1 (one) tablet by mouth once daily * calcium carbonate (Tums) 500 MG chew tablet Take 1 (one) tablet by mouth daily with food * docusate sodium (Colace) 50 MG capsule Take 1 (one) capsule by mouth once daily * ascorbic acid (Vitamin C) 500 MG tablet Take 1 (one) tablet by mouth once daily * bismuth subsalicylate (Pepto-Bismol) 262 MG chew tablet Take 1 (one) tablet by mouth as needed for Nausea/Vomiting * melatonin 3 MG tablet Take 1 (one) tablet by mouth at bedtime * acetaminophen (Tylenol) 325 MG tablet Take 1 (one) tablet by mouth every 4 hours as needed for Fever or Pain Maximum allowable Acetaminophen amount = 4 Grams (4000 mg) / 24 hours. Social History Tobacco Use Types Packs/Day Years Used Date Smoking Tobacco: Never Smokeless Tobacco: Never Tobacco Cessation:Counseling Given: No Sex and Gender Information Value Date Recorded Sex Assigned at Not on file Gender Identity Not on file Sexual Orientation Not on file Last Filed Vital Signs Vital Sign Reading Time Taken Comments Blood Pressure 159/90 09/19/2023 10:57 AM RECREATION PROGRAM SPECIALIST Pulse 95 09/19/2023 10:57 AM RECREATION PROGRAM SPECIALIST Temperature 37.1 ??C (98.7 ??F) 09/19/2023 10:[address] Respiratory Rate 18 09/19/2023 10:57 AM RECREATION PROGRAM SPECIALIST Oxygen Saturation 95% 09/19/2023 10:57 AM RECREATION PROGRAM SPECIALIST Inhaled Oxygen Concentration - - Weight 48.1 kg (106 lb) 09/19/2023 10:57 AM RECREATION PROGRAM SPECIALIST Height 152.4 cm (5') 09/19/2023 10:57 AM RECREATION PROGRAM SPECIALIST Body Mass Index 20.7 09/19/2023 10:57 AM RECREATION PROGRAM SPECIALIST Procedures * FL ESOPHAGRAM(Performed 09/19/2023) Performed for Hiatal hernia Results * FL ESOPHAGRAM (09/19/2023 11:13 AM RECREATION PROGRAM SPECIALIST) Anatomical Region Laterality Modality Chest Radiographic Jeannine ging 09/19/2023 10:3 9 AM RECREATION PROGRAM SPECIALIST Impressions 09/19/2023 11:43 AM RECREATION PROGRAM SPECIALIST IMPRESSION: 1.Large hiatal hernia, intrathoracic stomach with organoaxial gastric volvulus. No obstruction. Report dictated by Jeremy Gilbert MD, MD ([place]). I, Baljeet Sheehan MD have personally reviewed and interpreted this examination/study. > Interpreting Provider: Baljeet Sheehan MD on 09/19/2023 11:43 AM Narrative 09/19/2023 11:43 AM RECREATION PROGRAM SPECIALIST PROCEDURE: ??FL ESOPHAGRAM, DATE/TIME OF EXAM: ??09/19/2023 9:06 AM, LOCATION [facility] INDICATION: K44.9: Hiatal hernia COMPARISON: None. FLUOROSCOPY DOSE: ??1834 40.8 Reference air kerma (ka,r). FLUOROSCOPY TIME: ??2.7 minutes; Number of images: ?? TECHNIQUE: Fluoroscopic and overhead images were obtained using double contrast and single contrast technique while the patient ingested contrast. FINDINGS: The study is limited due to patient's limited mobility. Esophageal contour and caliber are normal. There is no esophageal mass, ulcer, or stricture. The esophageal motility was normal. No significant esophageal dysmotility seen in the semierect position. Note that the patient was unable to assume the prone GI position, so esophageal motility evaluated is assisted by gravity. There was passage of contrast throughout the GE junction. There is a large hiatal hernia and the stomach is mostly intrathoracic. Organoaxial gastric volvulus was seen. Delayed gastric emptying was noted during this exam. Reflux was seen without provocative maneuvers. Barium contrast was observed throughout the proximal jejunum without obstruction. Procedure Note Baljeet Sheehan MD - 09/19/2023 PROCEDURE: FL ESOPHAGRAM, DATE/TIME OF EXAM: 09/19/2023 9:06 AM,LOCATION [facility] INDICATION: K44.9: Hiatal hernia COMPARISON: None. FLUOROSCOPY DOSE: 1834 40.8 Reference air kerma (ka,r). FLUOROSCOPY TIME: 2.7 minutes; Number of images: TECHNIQUE: Fluoroscopic and overhead images were obtained using double contrast and single contrast technique while the patient ingested contrast. FINDINGS: The study is limited due to patient's limited mobility. Esophageal contour and caliber are normal. There is no esophageal mass, ulcer, or stricture. The esophageal motility was normal. No significant esophageal dysmotility seen in the semierect position. Note that the patient was unable to assume the prone GI position, so esophagealmotility evaluated is assisted by gravity. There was passage of contrastthroughout the GE junction. There is a large hiatal hernia and the stomach ismostly intrathoracic. Organoaxial gastric volvulus was seen. Delayed gastric emptying was noted during this exam. Reflux was seen without provocative maneuvers. Barium contrast was observed throughout the proximal jejunum without obstruction. IMPRESSION: 1.Large hiatal hernia, intrathoracic stomach with organoaxial gastric volvulus. No obstruction. Report dictated by Jeremy Gilbert MD, MD ([facility] [place]). I, Baljeet Sheehan MD have personally reviewed and interpreted this examination/study. > Interpreting Provider: Baljeet Sheehan MD on 09/19/2023 11:43 AM Ji Vigil MD FLUOROSCOPY O RDERABLES Care Teams Public Health Microbiologist Relationship Specialty Start Date End Date Jorge Warner MD [address] [place] [id number] PCP - General 12/03/09
--- OUTSIDE RECORDS SUMMARY | 2024-11-22 15:13 | XMS_ITS | Referral Summary ---
Author Organization [facility] Physician Office Building [address] [place] [id number] Care Team Providers Care System Specialist Name Role Phone No, Physician Primary Care Provider [phone] Allergies No known active allergies Medications omeprazole (PriLOSEC) 20 mg capsule 05/04/2018 Active traMADol (ULTRAM) 50 mg tablet 0 05/04/2018 Active alendronate (FOSAMAX) 70 mg tablet 03/15/2018 Active Active Problems Problem Noted Date Diagnosed Date Complete tear of right rotator cuff 05/23/2018 Biceps tendinitis of right upper extremity 05/23 Social History Tobacco Use Types Packs/Day Years Used Date Smoking Tobacco: Never Smokeless Tobacco: Never Personal Safety Answer Date Recorded Getting School Help Needed Not on file 01/12 Comments Unknown Sex and Gender Information Value Date Recorded Sex Assigned at Not on file 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
--- OUTSIDE RECORDS SUMMARY | 2024-11-22 15:14 | XMS_ITS | Continuity of Care Document ---
Author Organization [facility] Address [address] [place] [address] [address] [place] [address] Phone Care Team Providers Care Video Conference Specialist Name Role Phone [facility] Unavailable Unavail able Kristian Putnam Unavailable Unavailable Procedures Procedure Date Progressive Lens, Plastic Vision Svcs Frames Purchases Eye Exam & Treatment Refraction Advance Directives Directive Yes / No Effective Date File Name No Information Encounters Encounter Description Practice Location Reason(s) For Visit Diagnoses Date Provider Providers Copied on Encounter [facility], [address] [place] [address] [address], [place], [place], [id number], [place] tel:[phone] [facility] No Information Oct-0 6-201 0 [facility] . [address] [place] [address], [facility] [address], [place], [id number], [place]. tel:[phone] Referring Provider: Murali Escobar OD [facility], [address] [place] [address] [address], [place], [address]. tel:[phone] sulting Provider: Kristian Putnam, [address] [place] [address], [place], [address]. tel:[phone] [facility], [address] [place] [address] [address], [place], [place], [id number], [place] tel:[phone] [facility] No Information Oct-0 5-201 0 Escobar OD Murali. [address] [place] [address] , [address], [place], [address], [place]. tel:[phone] Family History Family Member Type Diagnosis Age At Onset No Information Payers Payer name Insurance type Covered libertarian ID Navin lopez(s) VSP CI [id number] Social History Type Description Quantity Date Captured Comments Sex Female Smoking Status No Information Chief Complaint And Reason For Visit No Information Reason For Referral Reason For Referral No Information History Of Present Illness Encounter Date Complaint History Of Prese nt Illness No Information Functional Status Date Functional Assessmen t No Information Instructions Date Instruction Additional Infor mation No Information Assessments Type Assessment Date No Information Patient Care Teams Name Effective Dates (start - stop) Status Members No Information
== END 2024-11-20 11:48 | disposition home or self-care (01) ==
PROVIDERS: PCP Internal Medicine; Visit Provider Internal Medicine Gastroenterology
PROC: 0DJ08ZZ Inspection of Upper Intestinal Tract, Via Natural or Artificial Opening Endoscopic (ICD-10-PCS; CPT 43239; principal; 2024-11-20 11:30)
DX: K21.00 Gastro-esophageal reflux disease with esophagitis, without bleeding (principal); K29.50 Unspecified chronic gastritis without bleeding; K44.9 Diaphragmatic hernia without obstruction or gangrene; D64.9 Anemia, unspecified; E78.00 Pure hypercholesterolemia, unspecified; E53.8 Deficiency of other specified B group vitamins; I11.0 Hypertensive heart disease with heart failure; I50.9 Heart failure, unspecified; G47.30 Sleep apnea, unspecified; Z79.83 Long term (current) use of bisphosphonates; Z79.82 Long term (current) use of aspirin; Z79.891 Long term (current) use of opiate analgesic
CPT/HCPCS: 43239; 88305; J2003; J2704; J7120